=== PATIENT | female | born 1935 | race American Indian/Alaskan Native ===

== ENCOUNTER 2017-12-27 10:59 | Outpatient (CLI) | payer MEDICARE ==
--- NOTE | 2017-12-27 14:25 | Ultrasound Report ---
BILATERAL DIGITAL DIAGNOSTIC MAMMOGRAM with CAD and ON lateral BREAST ULTRASOUND: 12/27/17 CLINICAL: Left palpable breast lump. COMPARISON:None. It has been over ten years since she had a mammogram. FINDINGS: The breasts are mostly fatty.Irregular spiculated left upper-outer breast mass with highly suspicious calcifications measures 4.8 x 4.0 x 4.2 cm. Segmental ductal calcifications of the inner right breast have predominantly benign morphology with a number of relatively large calcifications. Calcifications involve a 7.2 cm long segment of ducts with some branching and a second more proximal 2 cm long segment of ducts at approximately 3 o'clock. The longest segment of ductal calcifications is within 3 cm of the nipple. Although most of the calcifications have benign morphology some of the calcifications demonstrate the amorphous and are more suspicious. Ultrasound of the upper outer left breast demonstrated a solid irregular hypoechoic mass at 1 o'clock 6 cm from the nipple measuring 3.6 x 3.1 x 3.5 cm. It correlates with the mammographic mass. Ultrasound of the left axilla demonstrated no suspicious lymph node. A single lymph node with central fat and benign morphology measures 1.1 x 0.8 x 1.0 cm. Ultrasound of the inner right breast was performed and demonstrated no definite ultrasound correlate to correspond with the extensive ductal calcifications identified on the mammogram. A solid hypoechoic nodule with a calcification and shadowing at 2 o'clock 5 cm from the nipple measures 3 x 5 x 4 mm. A cyst or dilated duct with a central calcification at 1 o'clock 5 cm from the nipple measures 3 x 2 x 2 mm. A cyst at 1 o'clock 5 cm from the nipple measures 5 x 2 x 3 mm. IMPRESSION: 1. A highly suspicious palpable 4.8 cm left breast mass at 1 o'clock. Recommend ultrasound-guided needle core biopsy of this mass. 2. Right segmental ductal calcifications with predominantly benign morphology but some calcifications with more suspicious features. Ideally, these could be sampled with a stereotactic biopsy of the right breast. However, she does not appear to be a good candidate for stereotactic biopsy given the physical challenge of having to lie prone with minimal movement for the procedure. Unfortunately, there is no definite ultrasound correlate for these calcifications and surgical excision might be the only option for biopsy. Since the majority of the calcifications have benign features, recommend a six-month followup right diagnostic mammogram with magnification views of the calcifications. BI-RADS CATEGORY: 5 - - Highly Suggestive of Malignancy ACR BI-RADS MAMMOGRAPHIC CODES: 0 = Needs additional imaging evaluation; 1 = Negative; 2 = Benign; 3 = Probably benign; 4 = Suspicious; 5 = Malignant; 6 = Known biopsy-proven malignancy COMMENT: 1. Dense breast tissue, i.e., adenosis, fibrocystic changes, etc., may obscure an underlying neoplasm. 2. Approximately 10% of cancers are not detected with mammography. 3. A negative mammography report should not delay biopsy if a clinically suspicious mass is present. COMMENT: Patient follow-up letters are generated by our [employer] application.
== END 2017-12-27 11:00 | disposition home or self-care (01) ==
LOC: SPVWC 10:59
PROVIDERS: ATTEND Internal Medicine
DX: N63.21 Unspecified lump in the left breast, upper outer quadrant (principal); R92.1 Mammographic calcification found on diagnostic imaging of breast
CPT/HCPCS: 77066

== ENCOUNTER 2018-01-10 13:59 | Outpatient (CLI) | payer MEDICARE ==
--- NOTE | 2018-01-10 16:12 | Mammography Report ---
Ultrasound-guided left breast biopsy, marker placement, two-view mammogram: Patient presents with a palpable mass in the upper-outer left breast. The lateral approach was utilized. The breast was draped and cleansed with Betadine. 1% lidocaine used for local anesthesia. An ultrasound-guided 13-gauge guide was introduced through which a 14-gauge disposable spring-loaded Bard biopsy device was placed taking approximately 5 samples from different areas of the rather large irregular shaped hypoechoic mass. A marker was placed under ultrasound guidance prior to removal of the guide. And pressure was placed over the lesion for hemostasis. A small amount of bleeding occurred exam. No patient complications. The entrance site was sealed with a waterproof bandage. The two-view followup mammogram confirm positioning of the marker at the margin of the mass. Remainder the breast pattern is generally fatty replaced and unremarkable. The patient was discharged with followup instructions.
--- NOTE | 2018-01-10 16:15 | History and Physical Report ---
History of Present Illness Date of examination: 01/10/18 Chief complaint: lt breast mass
--- NOTE | 2018-01-10 16:16 | Procedure Note ---
Date of procedure: 01/10/18 Pre-op diagnosis: lt breast mass Post-op diagnosis: same Procedure: u/s guided bx Anesthesia: local Surgeon: ANKUR MAYNARD Estimated blood loss: none Pathology: list (lt breast tissue) Specimen disposition: to lab Condition: stable Disposition: same day
== END 2018-01-10 14:00 | disposition home or self-care (01) ==
LOC: SPVWC 13:59
PROVIDERS: ATTEND Internal Medicine
DX: C50.912 Malignant neoplasm of unspecified site of left female breast (principal); Z17.0 Estrogen receptor positive status [ER+]; Z88.0 Allergy status to penicillin
CPT/HCPCS: 19083; 77065; 88305; 88342; 88361; A4648

== ENCOUNTER 2018-02-10 08:12 | Outpatient (CLI) | payer MEDICARE ==
--- NOTE | 2018-02-11 09:34 | PET Report ---
PET/CT:02/10/18 08:12:00 CLINICAL: Breast cancer staging. A newly diagnosed left breast cancer. RADIOPHARMACEUTICAL: 14.49mCi F18-FDG. COMPARISON: 12/27/17 Bilateral Mammogram And Bilateral Breast Ultrasound TECHNIQUE- Following intravenous injection of F-18 FDG and an approximately 60 minute uptake period, CT and PET images from the mid skull to the upper thighs were acquired with the patient in the fasted state. No contrast was administered. The CT protocol used for this PET CT study is designed for attenuation correction and anatomic localization of PET abnormalities. This hog scraper CT is not desired to produce and cannot replace, [id number]-art diagnostic CT scans with specific imaging protocols for different body parts and indications. Plasma glucose the time of this test: 14.49g/dl. The standardized uptake values (SUV) are normalized to patient body weight and indicate the highest activity concentration (SUV max) in a given disease site. FINDINGS: Brain--Physiologic FDG uptake in the visualized regions of the brain. Neck--Physiologic FDG uptake . Chest--Physiologic FDG uptake in mediastinal blood pool and myocardium. A small non-FDG avid pericardial effusion. An FDG avid upper-outer left breast mass measures 4.4 x 3.6 cm with SUV 9.1. It correlates with the newly diagnosed breast cancer. No other mass of the breast. Lungs--No abnormal uptake. However, a subtle irregular 4 mm non-FDG avid right upper lobe irregular lung opacity image 75, series 1 and a subtle 3 mm non-FDG avid left upper lobe lung opacity on the same image. Pleura/pericardium--No abnormal uptake. Thoracic nodes--No abnormal uptake. Small bilateral axillary lymph nodes with no lymphadenopathy. Hepatobiliary--No abnormal uptake. Liver background SUV mean, as a reference for comparing FDG studies, is 3.2 . No liver mass. Spleen--No abnormal uptake. Pancreas--No abnormal uptake. Adrenal Glands--No abnormal uptake. Kidneys/Ureters/Bladder--No abnormal uptake. Abdominopelvic Nodes--No abnormal uptake. Bowel/Peritoneum/Mesentery--No abnormal uptake. Pelvic organs--No abnormal uptake. Bones/Soft Tissues--No abnormal uptake and no suspicious bone lesion. IMPRESSION- 1. A 4.4 x 3.6 cm FDG avid left breast cancer. 2. No other suspicious FDG uptake. 3. Bilateral non-FDG avid subcentimeter lung opacities. Recommend followup with CT chest in 3-6 months. 4. No evidence of zbigniew, hepatic or skeletal metastasis. 5. Small pericardial effusion.
== END 2018-02-10 08:13 | disposition home or self-care (01) ==
LOC: PET 08:12
PROVIDERS: ATTEND Internal Medicine
DX: Z08 Encounter for follow-up examination after completed treatment for malignant neoplasm (principal); C50.919 Malignant neoplasm of unspecified site of unspecified female breast; I31.3 Pericardial effusion (noninflammatory); J94.8 Other specified pleural conditions; R59.1 Generalized enlarged lymph nodes
CPT/HCPCS: 78815; 82962; A9552